=== PATIENT | male | born 1955 | race Caucasian/White ===

== ENCOUNTER 2021-04-23 10:43 | Emergency (ER) | payer OTHER, MEDICARE, SELFPAY ==
--- NOTE | 2021-04-23 | ECG_ITS ---
Test Reason : DIZZINESS Blood Pressure : / mmHG Vent. Rate : 073 BPM Atrial Rate : 073 BPM P-R Int : 132 ms QRS Dur : 106 ms QT Int : 446 ms P-R-T Axes : 060 026 060 degrees QTc Int : 491 ms Normal sinus rhythm Normal ECG When compared with ECG of 14-FEB-2014 20:45, QRS duration has increased Nonspecific T wave abnormality, improved in Lateral leads Referred By: Generic ED Physician Electronically Signed By:ELLY CHRIS
--- NOTE | ~2021-04-23 | XR_ITS ---
EXAMINATION: XR CHEST CLINICAL INFORMATION: SOB. COMPARISON: Chest 07/21/2015 TECHNIQUE: Frontal view of the chest was obtained. FINDINGS: No significant abnormality is noted involving the heart, lungs, mediastinum, bony thorax or soft tissues. XR/XR chest 1V IMPRESSION: Unremarkable chest examination.
--- NOTE | ~2021-04-23 | CT_ITS ---
EXAMINATION: CT HEAD WITHOUT CONTRAST CLINICAL INFORMATION: Dizziness COMPARISON: None TECHNIQUE: Contiguous axial imaging was performed from the skull base to vertex without intravenous administration of contrast. Additional 2-D coronal and sagittal reformatted images are generated on the CT workstation and uploaded to PACS. This CT examination was performed using dose optimization techniques as appropriate, variously including the following: *Automated exposure control *Adjustment of mA and/or kV according to patient size (this includes techniques or standardized protocols for targeted exams where dose is matched to indication/reason for exam; i.e. extremities or head) *Use of iterative reconstruction technique DLP: 737 mGy-cm FINDINGS: There is no intracranial hemorrhage, hematoma, or extra-axial fluid collection. The ventricles are normal in size. There is no hydrocephalus, edema, or mass effect. The murphy-white matter differentiation appears symmetric. There is no visible acute territorial infarct. There is a nonspecific 4 mm mildly hyperdense nodule within the pituitary stalk, around 75 HU attenuation. There is no pituitary enlargement and the stalk is otherwise unremarkable. The calvarium appears intact. There is no pneumocephalus or orbital emphysema. The visualized sinuses and middle ears and mastoid air cells show no significant mucosal thickening. There are no air-fluid levels. CT/CT head/brain wo con IMPRESSION: 1. No acute intracranial abnormality. No hemorrhage, hydrocephalus, or mass effect. 2. 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 This may be further evaluated non-emergently with MR brain (without and with contrast).
[2021-04-23 10:48] VITALS: BP 126/71; PULSE 80; RESP 19; TEMP 36.7; O2SAT 98; BMI 25.0
[2021-04-23 12:22] LABS: MANUAL DIFF FLAG NO
[2021-04-23 12:23] LABS: Basophils Percent Auto 0.6 % (0-2); Eosinophils Absolute Auto 0.3 X10*3/uL (0.0-0.4); Hematocrit 31.5 % (42-52); Hemoglobin 9.2 g/dl (14.0-18.0); Imm Gran Abs Auto 0.02 X10*3/uL (0.00-0.03); Imm Gran Pct Auto 0.3 % (0.0-0.4); Lymphocytes Absolute Auto 1.4 X10*3/uL (1.2-4.9); Lymphocytes Percent Auto 22.5 % (20-40); Mean Corpuscular HGB Conc 29.2 g/dl (31.0-36.0); Mean Corpuscular Hemoglobin 23.1 pg (27.0-33.0); Mean Corpuscular Volume 79.1 fL (80-98); Mean Platelet Volume 9.1 fL (9.4-12.4); Monocytes Absolute Auto 0.6 X10*3/uL (0.1-1.2); Monocytes Percent Auto 9.4 % (2-11); Neutrophils Percent Auto 63.2 % (45-73); Platelet Count 283 X10*3/uL (160-400); Red Blood Count 3.98 X10*6/uL (4.60-5.80); Red Cell Distribution Width 15.6 % (11.0-16.0); White Blood Count 6.3 X10*3/uL (4.8-10.8)
[2021-04-23 12:37] LABS: Anion Gap 11 (12-20); Blood Urea Nitrogen 11 mg/dL (9-16); Calcium 8.4 mg/dL (8.4-10.2); Carbon Dioxide 33 mmol/L (22-29); Chloride 101 mmol/L (96-108); Creatinine Clr Calc Pharmacy 96.9; Estimated Glomerular Filt Rate > 60; Glucose Random 102 mg/dL (60-115); Potassium 4.5 mmol/L (3.3-5.1); Sodium 140 mmol/L (135-145)
[2021-04-23 12:45] LABS: B Type Natriuretic Peptide 20 pg/mL (<100); Troponin-I High Sensitivity 3.8 ng/L (<3.5-35.0)
--- NOTE | 2021-04-23 13:00 | ED.DIZZY ---
HPI - Dizziness General Chief Complaint: Dizziness Stated Complaint: light headed Time Seen by Provider: 04/23/21 12:57 Source: patient Mode of arrival: ambulatory Limitations: no limitations History of Present Illness HPI Narrative: 65-year-old male came in for evaluation of lightheadedness and dizziness. Started since this morning, described as lightheadedness without spinning of the room, more when he is moving, felt constant since this morning, movement make it worse, nothing relief it, no other associated symptoms. Patient get this symptoms sporadically. No chest pain, no difficulty breathing, no abdominal pain, no headache, no blurry vision. no nausea, no vomiting. Related Data Allergies Allergy/AdvReac Type Severity Reaction Status Date / Time No Known Allergies Allergy Verified 04/23/21 10:48 Review of Systems Review of Systems: All other systems are reviewed and are negative Constitutional: Reports as per HPI and Reports no additional constitutional complaints Eyes: Reports as per HPI and Reports no additional eye complaints Reports system reviewed and no additional complaints, except as documented Cardiovascular: Reports as per HPI and Reports no additional cardiovascular complaints Respiratory: Reports as per HPI and Reports no additional respiratory complaints Gastrointestinal: Reports as per HPI and Reports no additional gastrointestinal complaints Genitourinary: Reports no additional female genitourinary complaints Musculoskeletal: Reports no additional musculoskeletal complaints Skin/Breast: Reports system reviewed and no additional complaints, except as docu Psychiatric: Reports no additional psychiatric complaints Endocrine: Reports no additional endocrine complaints Hematologic/Lymphatic: Reports no additional hematologic/lymphatic complaints Allergic/Immunologic: Reports no additional allergic/immunologic complaints Reports system reviewed and no additional complaints, except as documented and Reports Abnormal speech present [facility] Social History Social History Advance Directives: Yes Advance Directives Information Provided: Yes Advance Directives on File: No Physical Exam Vital Signs: Vital Signs: Last Vital Signs Temp 98.1 F 04/23/21 10:48 Pulse 94 04/23/21 13:47 Resp 20 04/23/21 13:39 BP 126/63 04/23/21 13:47 Pulse Ox 99 04/23/21 13:39 Oxygen Flow Rate 2 04/23/21 10:48 Body Mass Index 25.0 Vital signs have been reviewed as appeared to be correct. Blood pressure normal. Heart rate normal. Respiration rate normal. Temperature normal. Oxygen saturation normal. Appearance: Alert. Oriented X3. No acute distress. Head: Normal external exam. Normocephalic. Atraumatic. No Trivedi signs noted. No raccoon eyes noted Eyes: PERRLA. EOMI. Conjunctiva and sclera normal. Eyelids normal. ENT: TM's Normal. Pharynx normal. Uvula midline. Moist mucous membranes. No trismus noted. No drooling noted. No muffled voice noted. Neck: Normal inspection. Neck supple. FROM. No adenopathy. Thyroid Normal. No meningeal signs. No neck mass noted. CVS: Normal heart rate and rhythm. Heart sound normal. No murmurs noted. Pulses normal throughout. Respiratory: No respiratory distress. Painless inspiration. Breath sounds normal. No wheezes/rales/rhonchi noted. Chest nontender. No accessory muscle usage noted or decreased air movement noted. Abdomen: Soft and nontender. Bowel sounds normal in all 4 quadrants. No distention noted. No organomegaly noted. No visible injury noted. Back: No CVA tenderness. Full range of motion noted. Skin: Skin warm and dry. Normal skin color. Normal skin turgor. No rashes/lesions/lacerations noted. Extremities: No lower extremity edema. Extremities exhibit normal range of motion. Extremities nontender. Neuro: Oriented X 3. Cranial nerve exam: II-XII are grossly intact No motor deficit. No sensory deficit. Reflexes normal. NIH Stroke Scale Level of Consciousness: Alert Level of Consciousness Questions: Answers both questions correctly Level of Consciousness Commands: Performs both tasks correctly Best Gaze: Normal Visual: No visual loss Facial Palsy: Normal Motor Arm (Right): No drift Motor Arm (Left): No drift Motor Leg (Right): No drift Motor Leg (Left): No drift Limb Ataxia: Absent Sensory: Normal Best Language: No aphasia Dysarthia: Normal Extinction and Inattention: No abnormality Score: 0 Course Course Course Narrative: Assessment and plan. 65-year-old male came in for evaluation of feeling lightheadedness, patient has a normal neural exam hands NIH score is 0, CT of the head is unremarkable, patient after IV fluids feels better, labs are unremarkable including ABG. Patient feels better will discharge the patient home with follow-up with his PCP. Incidental 4 mm nodule on the pituitary gland that recommended to follow-up with PCP and get an outpatient MRI, patient was made aware of it. MDM - Dizziness Lab Data Attestation: I reviewed the patient's lab results. Result diagrams: 04/23/21 12:05 04/23/21 12:05 Labs: Lab Results 04/23/21 04/23/21 04/23/21 Range/Units 12:05 12:05 12:05 WBC 6.3 (4.8-10.8) X10*3/uL RBC 3.98 L (4.60-5.80) X10*6/uL Hgb 9.2 L (14.0-18.0) g/dl Hct 31.5 L (42-52) % MCV 79.1 L (80-98) fL MCH 23.1 L (27.0-33.0) pg MCHC 29.2 L (31.0-36.0) g/dl RDW 15.6 (11.0-16.0) % Plt Count 283 (160-400) X10*3/uL MPV 9.1 L (9.4-12.4) fL Immature Gran % (Auto) 0.3 (0.0-0.4) % Neut % (Auto) 63.2 (45-73) % Lymph % (Auto) 22.5 (20-40) % Montague % (Auto) 9.4 (2-11) % Eos % (Auto) 4.0 (0-4) % Baso % (Auto) 0.6 (0-2) % Lymph # (Auto) 1.4 (1.2-4.9) X10*3/uL Montague # (Auto) 0.6 (0.1-1.2) X10*3/uL Eos # (Auto) 0.3 (0.0-0.4) X10*3/uL Baso # (Auto) 0.0 (0.0-0.2) X10*3/uL Abs Immat Gran (auto) 0.02 (0.00-0.03) X10*3/uL Absolute Neuts (auto) 4.0 (2.0-8.3) X10*3/uL Absolute Nucleated RBC 0.000 (0.0-0.012) X10*3/uL Nucleated RBC % (auto) 0.0 (0.0-0.2) /100WBC O2 Saturation % ABG pH at Pt Temp (7.35-7.45) ABG pH (Temp Correct) (7.35-7.45) ABG pCO2 at Pt Temp (32-45) mmHg ABG pCO2 (Temp Corrct (32-45) mmHg ABG pO2 at Pt Temp (83-108) mmHg ABG pO2 (Temp Correct (83-108) ABG HCO3 (22-26) mmol/L ABG Base Excess (Actual) mmol/L Sodium 140 (135-145) mmol/L Potassium 4.5 (3.3-5.1) mmol/L Chloride 101 (96-108) mmol/L Carbon Dioxide 33 H (22-29) mmol/L Anion Gap 11 L (12-20) BUN 11 (9-16) mg/dL Creatinine 0.87 (0.5-1.4) mg/dL Estim Creat Clear Calc 96.9 Estimated GFR > 60 Random Glucose 102 (60-115) mg/dL Calcium 8.4 (8.4-10.2) mg/dL Troponin I High Sens 3.8 (<3.5-35.0) ng/L B-Natriuretic Peptide 20 (<100) pg/mL 04/23/21 Range/Units 13:39 WBC (4.8-10.8) X10*3/uL RBC (4.60-5.80) X10*6/uL Hgb (14.0-18.0) g/dl Hct (42-52) % MCV (80-98) fL MCH (27.0-33.0) pg MCHC (31.0-36.0) g/dl RDW (11.0-16.0) % Plt Count (160-400) X10*3/uL MPV (9.4-12.4) fL Immature Gran % (Auto) (0.0-0.4) % Neut % (Auto) (45-73) % Lymph % (Auto) (20-40) % Montague % (Auto) (2-11) % Eos % (Auto) (0-4) % Baso % (Auto) (0-2) % Lymph # (Auto) (1.2-4.9) X10*3/uL Montague # (Auto) (0.1-1.2) X10*3/uL Eos # (Auto) (0.0-0.4) X10*3/uL Baso # (Auto) (0.0-0.2) X10*3/uL Abs Immat Gran (auto) (0.00-0.03) X10*3/uL Absolute Neuts (auto) (2.0-8.3) X10*3/uL Absolute Nucleated RBC (0.0-0.012) X10*3/uL Nucleated RBC % (auto) (0.0-0.2) /100WBC O2 Saturation 99.0 % ABG pH at Pt Temp 7.39 (7.35-7.45) ABG pH (Temp Correct) 7.40 (7.35-7.45) ABG pCO2 at Pt Temp 43 (32-45) mmHg ABG pCO2 (Temp Corrct 43 (32-45) mmHg ABG pO2 at Pt Temp 186 H (83-108) mmHg ABG pO2 (Temp Correct 184 H (83-108) ABG HCO3 27 H (22-26) mmol/L ABG Base Excess (Actual) 2.0 mmol/L Sodium (135-145) mmol/L Potassium (3.3-5.1) mmol/L Chloride (96-108) mmol/L Carbon Dioxide (22-29) mmol/L Anion Gap (12-20) BUN (9-16) mg/dL Creatinine (0.5-1.4) mg/dL Estim Creat Clear Calc Estimated GFR Random Glucose (60-115) mg/dL Calcium (8.4-10.2) mg/dL Troponin I High Sens (<3.5-35.0) ng/L B-Natriuretic Peptide (<100) pg/mL Imaging Data Chest x-ray: Radiologist's impression: Unremarkable chest examination CT scan - head: Radiologist's impression: 1. No acute intracranial abnormality. No hemorrhage, hydrocephalus, or mass effect. ? 2. 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 This may be further evaluated non-emergently with MR brain (without and with contrast). ECG Data Interpretation: Normal sinus rhythm at 73 beats per minutes, normal axis deviation, normal intervals except for slight prolongation of QRS, diffuse nonspecific T-wave flattening. Discharge Plan Discharge Clinical Impression: Dizziness, Pituitary mass Patient Disposition: Home, Self-Care Instructions: Dizziness (ED) Referrals: Kaushik Alva MD [Primary Care Provider] - 2 days
[2021-04-23 13:33] VITALS: O2SAT 98
[2021-04-23] MEDS: 0.9 % Sodium Chloride 1,000 ML 999 ML IVCONT (13:37)
[2021-04-23 13:39] VITALS: BP 119/59; PULSE 90; RESP 20; O2SAT 99
[2021-04-23 13:43] VITALS: BP 120/66; PULSE 71
[2021-04-23 13:44] LABS: ABG HCO3 27 mmol/L (22-26); ABG pCO2 43 mmHg (32-45); ABG pCO2 TC 43 mmHg (32-45); ABG pH 7.39 (7.35-7.45); ABG pO2 186 mmHg (83-108); ABG pO2 TC 184 (83-108)
[2021-04-23 13:45] VITALS: BP 112/61; PULSE 74
[2021-04-23 13:47] VITALS: BP 126/63; PULSE 94
[2021-04-23 14:01] LABS: ABG Refer to POC result
== END 2021-04-23 15:15 | disposition home or self-care (01) ==
PROVIDERS: Emergency Provider Emergency Medicine; PCP Internal Medicine
DX: R42 Dizziness and giddiness (principal); E23.7 Disorder of pituitary gland, unspecified; R29.700 NIHSS score 0; Z79.899 Other long term (current) drug therapy
CPT/HCPCS: 36415; 70450; 71045; 80048; 82803; 83880; 84484; 85025; 93005; 96360; 99284; 99285

== ENCOUNTER 2021-05-08 07:10 | Outpatient (REF) | payer MEDICARE, SELFPAY ==
[2021-05-08 08:07] LABS: Hematocrit 32.1 % (42-52); Hemoglobin 9.4 g/dl (14.0-18.0); Mean Corpuscular HGB Conc 29.3 g/dl (31.0-36.0); Mean Corpuscular Hemoglobin 23.2 pg (27.0-33.0); Mean Corpuscular Volume 79.1 fL (80-98); Mean Platelet Volume 9.4 fL (9.4-12.4); Platelet Count 274 X10*3/uL (160-400); Red Blood Count 4.06 X10*6/uL (4.60-5.80); Red Cell Distribution Width 15.4 % (11.0-16.0); White Blood Count 5.6 X10*3/uL (4.8-10.8)
[2021-05-08 08:33] LABS: Iron 33 mcg/dL (45-160); Percent Iron Saturation 7 % (15-50); Total Iron Binding Capacity 484 mcg/dL (228-428); Unsaturated Iron Binding 451 ug/dL
[2021-05-08 08:55] LABS: Ferritin 8 ng/mL (20-250); Free T4 (Free Thyroxine) 0.87 ng/dL (0.71-1.85); Thyroid Stimulating Hormone 1.51 uIU/mL (0.32-4.0)
[2021-05-08 09:52] LABS: Folate 3.6 ng/mL (> or = 4.0); Vitamin B12 225 pg/mL (200-900)
[2021-05-08 10:18] LABS: Cortisol Random 10.7 ug/dL
[2021-05-09 20:27] LABS: Prolactin 9.1 ng/mL (2.0-18.0)
== END 2021-05-08 07:11 | disposition home or self-care (01) ==
LOC: HO.LAB 07:10
PROVIDERS: PCP Internal Medicine; Visit Provider Internal Medicine
DX: D64.9 Anemia, unspecified (principal); J44.9 Chronic obstructive pulmonary disease, unspecified; R22.0 Localized swelling, mass and lump, head
CPT/HCPCS: 36415; 82533; 82607; 82728; 82746; 83540; 84146; 84439; 84443; 85027

== ENCOUNTER 2021-07-01 13:36 | Outpatient (REF) | payer MEDICARE, SELFPAY ==
[2021-07-01 13:50] LABS: MANUAL DIFF FLAG NO
[2021-07-01 14:14] LABS: Basophils Percent Auto 0.6 % (0-2); Eosinophils Absolute Auto 0.4 X10*3/uL (0.0-0.4); Eosinophils Percent Auto 5.7 % (0-4); Hematocrit 33.8 % (42.0-52.0); Hemoglobin 9.9 g/dl (14.0-18.0); Imm Gran Abs Auto 0.02 X10*3/uL (0.00-0.03); Imm Gran Pct Auto 0.3 % (0.0-0.4); Lymphocytes Percent Auto 31.6 % (20-40); Mean Corpuscular HGB Conc 29.3 g/dl (31.0-36.0); Mean Corpuscular Hemoglobin 24.6 pg (27.0-33.0); Mean Corpuscular Volume 84.1 fL (80.0-98.0); Mean Platelet Volume 9.5 fL (9.4-12.4); Monocytes Absolute Auto 0.8 X10*3/uL (0.1-1.2); Monocytes Percent Auto 13.1 % (2-11); Neutrophils Percent Auto 48.7 % (45-73); Platelet Count 236 X10*3/uL (160-400); Red Blood Count 4.02 X10*6/uL (4.60-5.80); Red Cell Distribution Width 20.2 % (11.0-16.0); White Blood Count 6.2 X10*3/uL (4.8-10.8)
== END 2021-07-01 13:37 | disposition home or self-care (01) ==
LOC: HO.LAB 13:36
PROVIDERS: PCP Internal Medicine; Visit Provider Internal Medicine
DX: D64.9 Anemia, unspecified (principal)
CPT/HCPCS: 36415; 82270; 85025

== ENCOUNTER 2021-07-06 | Outpatient (REF) | payer MEDICARE, SELFPAY ==
[2021-07-08 16:10] LABS: OBS Int Ctl Valid YES; OBS1 NEGATIVE (NEGATIVE); OBS2 NEGATIVE (NEGATIVE); OBS3 NEGATIVE (NEGATIVE)
== END 2021-07-06 00:01 | disposition home or self-care (01) ==
LOC: HO.LNP
PROVIDERS: Visit Provider Internal Medicine
DX: D64.9 Anemia, unspecified (principal)
CPT/HCPCS: 82270

== ENCOUNTER 2021-07-30 09:00 | Day surgery (SDC) | payer MEDICARE, SELFPAY ==
[2021-07-23 09:02] VITALS: BMI 27.5
--- NOTE | 2021-07-29 09:12 | P.CONAN_ITS ---
Documented by User: Anne-Marie Yoo NP 07/29/21 09:15 HPI - Anesthesia Eval Consult details Narrative: 65yo M for Upper Endoscopy and Colonoscopy [facility]2 [facility] Past Medical History Medical History (Updated 07/22/21 @ 19:18 by Eufemia Shepard RN) CAD (coronary artery disease) COPD (chronic obstructive pulmonary disease) Diverticulosis GERD (gastroesophageal reflux disease) Iron deficiency anemia Supplemental oxygen dependent Surgical History Surgical History H/O right inguinal hernia repair History of colonoscopy History of tonsillectomy Social History Social History Advance Directives: No Advance Directives Information Provided: Yes Meds Allergies Allergy/AdvReac Type Severity Reaction Status Date / Time No Known Allergies Allergy Verified 04/23/21 10:48 Home Medications Medication Instructions Recorded Confirmed Last Taken Type albuterol sulfate 90 mcg/actuation 2 puff INHALATION Q4-6H PRN 07/22/21 07/22/21 Unknown History aerosol inhaler (ProAir HFA) aspirin 81 mg capsule 81 mg PO DAILY 07/22/21 07/22/21 Unknown History atorvastatin 20 mg tablet 1 tab PO DAILY 07/22/21 07/22/21 Unknown History carvedilol 6.25 mg tablet 1 tab PO BID 07/22/21 07/22/21 Unknown History ferrous sulfate 325 mg (65 mg 325 mg PO DAILY 07/22/21 07/22/21 Unknown History iron) tablet lisinopril 2.5 mg tablet 1 tab PO DAILY 07/22/21 07/22/21 Unknown History omeprazole 20 mg capsule,delayed 1 cap PO DAILY 07/22/21 07/22/21 Unknown History release Exam Exam Date and Time: July 29, 2021 0912 Height,Weight and Vital Signs: Height 6 ft Weight 92.079 kg Pertinent Lab Results Pertinent Lab Results: Laboratory Tests 04/23/21 07/01/21 12:05 13:48 WBC 6.2 Hgb 9.9 L Hct 33.8 L Plt Count 236 Sodium 140 Potassium 4.5 Chloride 101 Carbon Dioxide 33 H BUN 11 Creatinine 0.87 Narrative Narrative: EKG 03/2021 Vent. Rate : 073 BPM ? ? Atrial Rate : 073 BPM ?? P-R Int : 132 ms? QRS Dur : 106 ms ? ? QT Int : 446 ms ? ? ? P-R-T Axes : 060 026 060 degrees ?? QTc Int : 491 ms ? Normal sinus rhythm Normal ECG When compared with ECG of 14-FEB-2014 20:45, QRS duration has increased Nonspecific T wave abnormality, improved in Lateral leads Assessment and Plan Assessment Anesthesia Assessment: Chart Reviewed Documented by User: Elise Alanis MD 07/30/21 09:18 [facility] Past Medical History Medical History (Updated 07/22/21 @ 19:18 by Eufemia Shepard RN) CAD (coronary artery disease) COPD (chronic obstructive pulmonary disease) Diverticulosis GERD (gastroesophageal reflux disease) Iron deficiency anemia Supplemental oxygen dependent Functional capacity: independent ambulation Surgical History Surgical History H/O right inguinal hernia repair History of colonoscopy History of tonsillectomy History of Problems with Anesthesia: No Social History Social History Advance Directives: No Advance Directives Information Provided: Yes Meds Allergies Allergy/AdvReac Type Severity Reaction Status Date / Time No Known Allergies Allergy Verified 04/23/21 10:48 Home Medications Medication Instructions Recorded Confirmed Last Taken Type albuterol sulfate 90 mcg/actuation 2 puff INHALATION Q4-6H PRN 07/22/21 07/22/21 Unknown History aerosol inhaler (ProAir HFA) aspirin 81 mg capsule 81 mg PO DAILY 07/22/21 07/22/21 Unknown History atorvastatin 20 mg tablet 1 tab PO DAILY 07/22/21 07/22/21 Unknown History carvedilol 6.25 mg tablet 1 tab PO BID 07/22/21 07/22/21 Unknown History ferrous sulfate 325 mg (65 mg 325 mg PO DAILY 07/22/21 07/22/21 Unknown History iron) tablet lisinopril 2.5 mg tablet 1 tab PO DAILY 07/22/21 07/22/21 Unknown History omeprazole 20 mg capsule,delayed 1 cap PO DAILY 07/22/21 07/22/21 Unknown History release Exam Airway Mallampati Class: III TM Dist: >3cm Neck ROM: Full Denture: Upper and Lower Heart: RRR Lungs: distant breath sounds Assessment and Plan Final Anesthetic Review History of Problems with Anesthesia: No ASA Class: III Final Preanesthetic Review: No Changes in Pt Med Stat, Meds/Allgs Chart Reviewed, Consent Obtained/Reviewed and Anes Risks/Benef Reviewed Patient Risk: Intermediate Procedure Risk: Low Anesthetic Plan Anesthetic Plan: MAC: Disposition: Standard PACU
--- NOTE | 2021-07-30 | ECG_ITS ---
Test Reason : PREOP Blood Pressure : / mmHG Vent. Rate : 087 BPM Atrial Rate : 087 BPM P-R Int : 142 ms QRS Dur : 134 ms QT Int : 428 ms P-R-T Axes : 054 039 132 degrees QTc Int : 515 ms Normal sinus rhythm Left bundle branch block Abnormal ECG When compared with ECG of 23-APR-2021 11:59, Left bundle branch block is now Present Referred By: Elise Alanis Electronically Signed By:MAURA BAEZ MD
[2021-07-30 09:22] VITALS: BP 138/73; PULSE 95; RESP 18; TEMP 36.1; O2SAT 93
[2021-07-30] MEDS: Lactated Ringers 1,000 ML 50 ML IVCONT (09:43)
--- NOTE | 2021-07-30 10:28 | MHC.SHP ---
Pre-Procedural Eval Section A Date of Service: 07/30/21 The patient is an INPATIENT: No Changes since office visit: No Cold of Flu in the past 2 weeks, No New Medical Problems, No Changes in Medication and No Patient answered all questions The History & Physical has been completed within 30 days and I have reviewed it.: Yes Section B Chief Complaint: Iron Deficiency Anemia Allergies: Allergies Allergy/AdvReac Type Severity Reaction Status Date / Time No Known Allergies Allergy Verified 04/23/21 10:48 Plan I have reviewed the history and physical and performed a pertinent physical examination on my patient. No changes have occurred unless specified.
[2021-07-30 11:12] VITALS: BP 127/64; PULSE 97; RESP 20; TEMP 36.4; O2SAT 98
--- NOTE | 2021-07-30 11:12 | PM.OP ---
Brief Operative Note Date of Service: 07/30/21 Pre-op diagnosis: TELMA GERD Post-op diagnosis: same (hiatal hernia, esophageal varices, diverticulosis) Procedure: EGD/colon Surgeon: Farhat Ivey Anesthesia: MAC Was an Human Resource Internship used for this Procedure?: No Estimated blood loss (mL): 5 Pathology: other (bxs duodenum, egj) Condition: stable Disposition: PACU
[2021-07-30 11:27] VITALS: BP 127/88; PULSE 98; RESP 20; TEMP 36.4; O2SAT 97
--- NOTE | 2021-07-30 12:14 | OP_ITS ---
SURGEON: Farhat Ivey MD INDICATIONS: Iron deficiency anemia and gastroesophageal reflux disease. PREOPERATIVE DIAGNOSIS: POSTOPERATIVE DIAGNOSIS: PROCEDURE PERFORMED: ESTIMATED BLOOD LOSS: COMPLICATIONS: ANESTHESIA: ASSISTANTS: SPECIMENS: PROCEDURE: Upper endoscopy with biopsy, colonoscopy to the cecum. MEDICATIONS: Monitored anesthesia care. DESCRIPTION OF PROCEDURE: History and physical was performed. The risks and benefits of the procedure were explained to the patient. Informed consent was obtained. The patient was placed in the left lateral decubitus position. The Olympus video gastroscope was introduced into the esophagus, stomach, and duodenum. Examination was performed. The scope was removed. He tolerated the procedure well and was repositioned for colonoscopy. A digital rectal exam was performed and was found to be normal. The Olympus pediatric video colonoscope was introduced into the rectum and advanced to the cecum without difficulty. The cecum was identified by transillumination, palpation, and identification of ileocecal valve. Examination was performed. The scope was removed. He tolerated both procedures well, returned to Recovery in stable condition. FINDINGS: UPPER ENDOSCOPY: Esophagus: There appeared to be grade 1 varices extending from the EG junction at about 36 cm to about 24 cm. There were 3 chains. There was no stigmata of recent hemorrhage. The varices easily flattened with insufflation. There was a small sliding hiatal hernia. The EG junction was irregular and biopsies were obtained from the EG junction. Stomach: The stomach showed no evidence of masses, ulcers, or polyps. Duodenum: The bulb and second portion were normal. Biopsies were obtained from the second portion because of the patient's history of iron deficiency anemia. COLONOSCOPY: The terminal ileum was not examined. There was a large amount of liquid stool with some undigested food left, which limited the examination for detection of small polyps. No polyps were identified. The liquid stool was washed and suctioned as best possible. There was moderate sigmoid diverticulosis without any signs of diverticulitis. Retroflexed examination showed prominent rectal veins. IMPRESSION: 1. Esophageal varices. 2. Small hiatal hernia. 3. Diverticulosis. RECOMMENDATION: 1. Follow up the biopsy results. 2. Obtain ultrasound imaging for further evaluation of liver given findings of esophageal varices. 3. Continue proton pump inhibitor. 4. Consideration can be given to small-bowel capsule endoscopy if persistent iron deficiency is noted. 5. Screening colonoscopy in 10 years. MD ARON العراقي/YVES / [id number] LUISA
--- NOTE | 2021-07-30 12:53 | HO.POSTANES ---
Post Anesthesia Evaluation Post Anesthesia Evaluation Vital Signs: Vital Signs Temp Pulse Resp BP Pulse Ox 07/30/21 11:27 97.6 F 98 20 127/88 97 07/30/21 11:12 97.6 F 97 20 127/64 98 07/30/21 09:22 97 F 95 18 138/73 93 Anesthesia: Monitored Mental Status: Awake Pain Control: Satisfactory Nausea/Vomiting: None Hydration: Adequate Anesthesia-Related Issues: No Anes. Related Issues
== END 2021-07-30 11:47 | disposition home or self-care (01) ==
PROVIDERS: PCP Internal Medicine; Visit Provider Internal Medicine Gastroenterology
PROC: (CPT 45378; principal; 2021-07-30 10:20)
DX: D50.9 Iron deficiency anemia, unspecified (principal); Z86.010 Personal history of colon polyps; K57.30 Diverticulosis of large intestine without perforation or abscess without bleeding; K21.9 Gastro-esophageal reflux disease without esophagitis; I85.00 Esophageal varices without bleeding; K44.9 Diaphragmatic hernia without obstruction or gangrene; J44.9 Chronic obstructive pulmonary disease, unspecified; Z99.81 Dependence on supplemental oxygen; Z79.899 Other long term (current) drug therapy; Z79.82 Long term (current) use of aspirin; I25.10 Atherosclerotic heart disease of native coronary artery without angina pectoris; Z87.891 Personal history of nicotine dependence
CPT/HCPCS: 45378; 43239; 88305; 93005

== ENCOUNTER 2021-09-05 08:40 | Outpatient (REF) | payer MEDICARE, SELFPAY ==
--- NOTE | ~2021-09-05 | US_ITS ---
EXAMINATION: US COMPLETE ABDOMEN WITH LIVER ELASTOGRAPHY CLINICAL INFORMATION: Esophageal varices. COMPARISON: None. TECHNIQUE: Real-time imaging of the abdominal viscera. Noninvasive ultrasound liver fibrosis assessment is performed using Linsey ElastPQ point quantification shear wave elastography (2D-SWE) with a C5-2 MHz transducer. Multiple elastography samples are obtained. FINDINGS: PANCREAS: Pancreas is not visualized. ABDOMINAL AORTA: The proximal and distal abdominal aorta is normal. The mid abdominal aorta is not seen. INFERIOR VENA CAVA: Visualized portions are normal. LIVER: The liver demonstrates normal size, contour and echogenicity. No focal lesion or intrahepatic biliary duct dilatation. The right lobe measures 17.4 cm in length. The left lobe measures 11.1 cm in length. Portal flow is hepatopedal. Shear wave liver elastography median stiffness is 1.39 m/s (reference: normal median stiffness is 1.3 m/s or less). IQR/median stiffness to assess sampling precision is 0.09 (reference: good quality data set is IQR/median stiffness of 0.15 or less). GALLBLADDER: Normal. The gallbladder is physiologically distended without evidence of stones, sludge, polyps, wall thickening or pericholecystic fluid. COMMON BILE DUCT: Normal in caliber measuring 0.4 cm in diameter. RIGHT KIDNEY: There is moderate hydronephrosis extrarenal pelvis. No renal calculi or focal parenchymal lesions. The kidney measures 10.9 cm in maximum dimension. LEFT KIDNEY: Normal. No hydronephrosis. No renal calculi or focal parenchymal lesions. The kidney measures 10.1 cm in maximum dimension. SPLEEN: Normal. The spleen measures 8.9 cm in maximum dimension. FREE FLUID: None. Limited imaging to the pelvis reveals normal bilateral ureteral jets. US/US abdomen comp w elastography IMPRESSION: 1. Unremarkable complete abdominal ultrasound. 2. Normal bilateral ureteral jets. 3. Liver elastography: Median liver stiffness measurement 1.39 m/s suggestive of cACLD ruled out. REFERENCE: Society of Radiologists in Ultrasound Liver Stiffness Thresholds (2020): LIVER STIFFNESS THRESHOLDS: *Liver Stiffness equal or less than 1.3 m/s: High probability of being normal. *Liver Stiffness less than 1.7 m/s: In the absence of other known clinical signs, rules out compensated advanced chronic liver disease. *Liver Stiffness 1.7-2.1 m/s: Suggestive of compensated advanced chronic liver disease, but need further test for confirmation. *Liver Stiffness over 2.1 m/s: Rules in compensated advanced chronic liver disease. *Liver Stiffness over 2.4 m/s: Suggestive of clinically significant portal hypertension. QUALITY OF DATA SET: *IQR/Median value equal or less than 0.15 implies a quality data set. *IQR/Median value over 0.15 implies a poor quality data set. SIGNIFICANT CHANGE FROM PRIOR EXAM: Significant change if liver stiffness measurement is 10% or greater from prior exam. OTHER CONSIDERATIONS: The stage of liver fibrosis may be overestimated in the setting of acute hepatitis, liver inflammation, elevated liver function tests, hepatic vascular congestion, obstructive cholestasis, non-fasting state, and infiltrative diseases such as amyloidosis and lymphoma. In some patients with NAFLD, the liver stiffness thresholds for compensated advanced chronic liver disease may be lower. In causes other than viral hepatitis and NAFLD, liver stiffness thresholds are not well established.
== END 2021-09-05 08:41 | disposition home or self-care (01) ==
LOC: HO.US 08:40
PROVIDERS: PCP Internal Medicine; Visit Provider Internal Medicine Gastroenterology
DX: I85.00 Esophageal varices without bleeding (principal)
CPT/HCPCS: 76705; 76981

== ENCOUNTER 2021-09-16 12:19 | Outpatient (REF) | payer MEDICARE, SELFPAY ==
[2021-09-16 12:35] LABS: MANUAL DIFF FLAG NO
[2021-09-16 13:18] LABS: Basophils Percent Auto 0.6 % (0-2); Eosinophils Absolute Auto 0.3 X10*3/uL (0.0-0.4); Eosinophils Percent Auto 6.1 % (0-4); Hemoglobin 12.8 g/dl (14.0-18.0); INTERNATIONAL NORM RATIO 0.9 (0.9-1.1); Imm Gran Abs Auto 0.02 X10*3/uL (0.00-0.03); Imm Gran Pct Auto 0.4 % (0.0-0.4); Lymphocytes Absolute Auto 1.4 X10*3/uL (1.2-4.9); Lymphocytes Percent Auto 28.9 % (20-40); Mean Corpuscular HGB Conc 31.2 g/dl (31.0-36.0); Mean Corpuscular Hemoglobin 28.4 pg (27.0-33.0); Mean Corpuscular Volume 91.1 fL (80.0-98.0); Mean Platelet Volume 9.3 fL (9.4-12.4); Monocytes Absolute Auto 0.5 X10*3/uL (0.1-1.2); Monocytes Percent Auto 10.3 % (2-11); Neutrophils Absolute Auto 2.7 x10*3/uL (2.0-8.3); Neutrophils Percent Auto 53.7 % (45-73); Platelet Count 206 X10*3/uL (160-400); Prothrombin Time 10.6 SEC (9.9-13.0); Red Cell Distribution Width 13.9 % (11.0-16.0); White Blood Count 4.9 X10*3/uL (4.8-10.8)
[2021-09-16 13:20] LABS: Partial Thromboplastin Time 32.6 SEC (24.1-38.0)
[2021-09-17 08:02] LABS: HBS Num1 0.31 mIU/mL (0-7.99); HBc Num1 0.03 S/CO (0.00-0.79); Hepatitis B Core Antibody Nonreactive (Nonreactive); ~HepC Num1 0.07 S/CO (0.00-0.79); ~Hepatitis B Surface Antibody NONREACTIVE (Nonreactive); ~Hepatitis C Antibody Nonreactive (Nonreactive)
[2021-09-17 08:11] LABS: HBsAGNum1 0.22 S/CO (0.00-0.99); Hepatitis B Surface Antigen Negative (Negative)
== END 2021-09-16 12:20 | disposition home or self-care (01) ==
LOC: HO.LAB 12:19
PROVIDERS: PCP Internal Medicine; Visit Provider Internal Medicine
DX: K74.60 Unspecified cirrhosis of liver (principal); D64.9 Anemia, unspecified
CPT/HCPCS: 36415; 85025; 85610; 85730; 86704; 86706; 86803; 87340

== ENCOUNTER 2021-11-04 11:15 | Outpatient (REF) | payer MEDICARE, SELFPAY ==
[2021-11-04 11:31] LABS: MANUAL DIFF FLAG NO
[2021-11-04 12:16] LABS: Basophils Percent Auto 0.5 % (0-2); Eosinophils Absolute Auto 0.3 X10*3/uL (0.0-0.4); Eosinophils Percent Auto 5.7 % (0-4); Hematocrit 39.2 % (42.0-52.0); Hemoglobin 12.5 g/dl (14.0-18.0); Imm Gran Abs Auto 0.02 X10*3/uL (0.00-0.03); Imm Gran Pct Auto 0.3 % (0.0-0.4); Lymphocytes Absolute Auto 1.6 X10*3/uL (1.2-4.9); Lymphocytes Percent Auto 26.9 % (20-40); Mean Corpuscular HGB Conc 31.9 g/dl (31.0-36.0); Mean Corpuscular Hemoglobin 29.8 pg (27.0-33.0); Mean Corpuscular Volume 93.6 fL (80.0-98.0); Mean Platelet Volume 9.3 fL (9.4-12.4); Monocytes Absolute Auto 0.6 X10*3/uL (0.1-1.2); Monocytes Percent Auto 10.2 % (2-11); Neutrophils Absolute Auto 3.3 x10*3/uL (2.0-8.3); Neutrophils Percent Auto 56.4 % (45-73); Platelet Count 220 X10*3/uL (160-400); Red Blood Count 4.19 X10*6/uL (4.60-5.80); Red Cell Distribution Width 12.6 % (11.0-16.0); White Blood Count 5.8 X10*3/uL (4.8-10.8)
[2021-11-04 12:55] LABS: Alanine Aminotransferase 11 U/L (0-40); Alkaline Phosphatase 71 U/L (39-117); Aspartate Amino Transferase 12 U/L (5-37); Bilirubin Direct 0.3 mg/dL (0.0-0.5); Bilirubin Total 0.7 mg/dL (0.0-1.0); Iron 99 mcg/dL (45-160); Percent Iron Saturation 27 % (15-50); Total Iron Binding Capacity 370 mcg/dL (228-428); Total Protein 6.3 g/dL (6.5-8.0); Unsaturated Iron Binding 271 ug/dL
[2021-11-04 13:15] LABS: HBsAGNum1 0.22 S/CO (0.00-0.99); Hepatitis B Surface Antigen Negative (Negative)
[2021-11-04 13:16] LABS: Ferritin 46 ng/mL (20-250)
[2021-11-04 13:24] LABS: HBS Num1 0.01 mIU/mL (0-7.99); HBc Num1 0.03 S/CO (0.00-0.79); Hepatitis B Core Antibody Nonreactive (Nonreactive); ~HepC Num1 0.07 S/CO (0.00-0.79); ~Hepatitis B Surface Antibody NONREACTIVE (Nonreactive); ~Hepatitis C Antibody Nonreactive (Nonreactive)
[2021-11-06 04:15] LABS: Hepatitis A Antibody IgG REACTIVE (Nonreactive); ~Hepatitis A Antibody IgG 1.02 S/CO (0.00-0.99)
[2021-11-06 15:06] LABS: Anti Nuclear Antibody Screen NEGATIVE (NEGATIVE)
[2021-11-07 17:52] LABS: Mitochondrial Antibodies NEGATIVE (NEGATIVE)
[2021-11-09 00:07] LABS: Smooth Muscle Antibody <20 U (<20)
== END 2021-11-04 11:16 | disposition home or self-care (01) ==
LOC: HO.LAB 11:15
PROVIDERS: PCP Physician Assistant; Visit Provider Internal Medicine Gastroenterology
DX: K22.70 Barrett's esophagus without dysplasia (principal)
CPT/HCPCS: 36415; 80076; 82728; 83540; 85025; 86015; 86038; 86039; 86255; 86256; 86704; 86706; 86708; 86803; 87340